=== PATIENT | female | born 1990 | race Two or more races ===

== ENCOUNTER → 2019-06-05 11:29 | Outpatient (CLI) | payer OTHER | END | disposition home or self-care (01) | LOC: LAB 11:29 | DX: M54.5 Low back pain (principal); R30.0 Dysuria ==

== ENCOUNTER 2019-12-02 05:33 | Emergency (ER) | payer OTHER ==
[~2019-12-02] VITALS: Ht 154.9 cm; Wt 68.0 kg
== END 2019-12-02 14:26 | disposition home or self-care (01) ==
LOC: ER 05:33
DX: N93.8 Other specified abnormal uterine and vaginal bleeding (principal)